=== PATIENT | female | born 1995 | race Caucasian/White ===

== ENCOUNTER 2018-06-05 09:36 | Emergency (ER) | payer BC ==
[~2018-06-05] VITALS: Ht 177.8 cm; Wt 65.8 kg
[2018-06-05] MEDS ORDERED: LORYNA 3 MG-0.1 EACH PO (10:07)
== END 2018-06-05 12:33 | disposition home or self-care (01) ==
LOC: ER 09:36
DX: J35.01 Chronic tonsillitis (principal)